=== PATIENT | male | born 1945 | race Caucasian/White ===

== ENCOUNTER → 2017-04-08 | Day surgery (SDC) | payer MEDICARE, OTHER ==
[~2017-04-08] MED LIST: IV RINGERS SOLUTION,LACTATED 1,000 ML IV ONE; PROPOFOL 20 ML IV ONE
--- NOTE | 2017-04-12 10:33 | PATHOLOGY ---
PATHOLOGY REPORT * * * * * * * * FINAL DIAGNOSIS: A. Colon, ascending, biopsy: - Hyperplastic polyp. B. Colon, descending, biopsy: - Adenomatous colonic mucosa, two fragments. - Hyperplastic colonic mucosa, approximately three fragments. (SKM:pit; 04/12/2017) REPORT ELECTRONICALLY SIGNED BY: Rashad Kelley M.D. DATE/TIME: 04/12/2017 10:32 * * * * * * * * GROSS PATHOLOGY: A. Received in formalin labeled "Curt Canales ascending colon BX," is a segment of pérez soft tissue measuring 0.4 cm in maximum dimension. The specimen is submitted entirely in cassette A1. B. Received in formalin labeled "Curt jacobson descending colon polyp," are multiple segments of pérez soft tissue measuring 2.4 x 0.7 by 0.3 cm in aggregate dimensions and ranging from 0.1 to 0.3 cm in maximum dimension. The specimen is submitted entirely in cassette B1. (TSD; 04/09/2017) INITIAL CPT CODE(S): A; 69011 B; 87907 Professional services performed by [email or web address] [place] [address] Technical services performed by [email or web address] at [address] [place] [address] [address], [place] [address]. SPECIMEN(S) RECEIVED: A.Ascending colon biopsy B.Descending colon polyp CLINICAL HISTORY: Colon polyps PATIENT: CURT CANALES /AGE: 10 1945 (Age: 71) PATIENT #: [id number] ALT CASE #: SPECIMEN COLLECTION DATE: 04/08/2017 SPECIMEN RECEIVED DATE: 04/09/2017 [facility] - [address] [place] [address] - PHONE: [phone] * * * END OF REPORT * * *
== END | disposition home or self-care (01) ==
LOC: SURG 11:31
PROVIDERS: ATTEND Internal Medicine Gastroenterology
DX: Z09 Encounter for follow-up examination after completed treatment for conditions other than malignant neoplasm (principal); Z87.19 Personal history of other diseases of the digestive system; D12.4 Benign neoplasm of descending colon; D12.2 Benign neoplasm of ascending colon; K57.30 Diverticulosis of large intestine without perforation or abscess without bleeding; I10 Essential (primary) hypertension; E78.00 Pure hypercholesterolemia, unspecified; M19.91 Primary osteoarthritis, unspecified site; Z88.6 Allergy status to analgesic agent; Z88.2 Allergy status to sulfonamides
CPT/HCPCS: 45380; 45385; 88305; J2704; J7120

== ENCOUNTER → 2017-10-18 | Outpatient (CLI) | payer MEDICARE, OTHER ==
--- NOTE | 2017-10-18 11:15 | RAD ---
Renal ultrasound 10/18/2017 Indication: Chronic renal failure, stage III Discussion: Ultrasound evaluation of the kidneys was performed. No comparison studies are available for review. Static images were submitted to PACS. Right kidney measures 12.8 cm in length. Left kidney measures 12.1 cm in length. Kidneys are grossly unremarkable in morphology. No focal renal lesions are identified. No nephrolithiasis or evidence of hydronephrosis is seen. Visualized bladder is unremarkable. Impression: Unremarkable sonographic appearance of the bilateral kidneys
== END | disposition home or self-care (01) ==
LOC: US 10:38
PROVIDERS: ATTEND Internal Medicine Nephrology
DX: I12.9 Hypertensive chronic kidney disease with stage 1 through stage 4 chronic kidney disease, or unspecified chronic kidney disease (principal); N18.3 Chronic kidney disease, stage 3 (moderate); E78.00 Pure hypercholesterolemia, unspecified
CPT/HCPCS: 76770

== ENCOUNTER 2019-02-26 21:57 | Inpatient (IN) | payer MEDICARE, OTHER ==
[~2019-02-26] VITALS: Ht 180.3 cm; Wt 86.2 kg
--- NOTE | 2019-02-26 22:52 | EKG ---
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
--- NOTE | 2019-02-26 22:54 | ED.ADGEN ---
Past History Past Medical History: Arthritis, COPD, High Cholesterol, Hypertension, Renal Disease Past Surgical History: No Surgical History Alcohol Use: Occasionally Drug Use: None, Marijuana Adult General Chief Complaint Chief Complaint "..I ve been having some chest pian..".. .or not really chest pain but tightness... ... I ve had this off and on... usually after I eat... But it seemed to get worse when we were on vacation and do have a history of COPD and hypertension and lipids but I am still having problems after of gotten back home..." HPI HPI Patient is a 73 year old male who presents with hx of interment chest discomfort which he describes as tightness . Patient's discomfort most often comes after eating. but does sometimes occur with activity. Patient does have a history of COPD, stage III kidney disease, hypertension,. And obesity. Patient recently had travel to [place] and drove back to [place] on Wednesday. Patient has had 2 previous stress test last one approximately 4 years ago. Patient normally follows with Dr. Artis Review of Systems Review of Systems Constitutional: Denies fever or chills [] Eyes: Denies change in visual acuity, redness, or eye pain [] HENT: Denies nasal congestion or sore throat [] Respiratory: Denies cough or shortness of breath []complaints of chest tightness Cardiovascular: No additional information not addressed in HPI [] GI: History of epigastric abdominal pain, nausea. Denies vomiting, bloody stools or diarrhea [] : Denies dysuria or hematuria [] Musculoskeletal: Denies back pain or joint pain [] Integument: Denies rash or skin lesions [] Neurologic: Denies headache, focal weakness or sensory changes [] Endocrine: Denies polyuria or polydipsia [] All other systems were reviewed and found to be within normal limits, except as documented in this note. Family History Family History Family history of coronary artery disease Current Medications Current Medications Current Medications Medications (Trade) Dose Ordered Sig/Wanda Start Time Stop Time Status Last Admin Dose Admin Aspirin (Children'S Aspirin) 324 mg 1X ONCE 02/26/19 23:15 02/26/19 23:16 DC 02/26/19 23:17 324 MG Famotidine (Pepcid Vial) 20 mg 1X ONCE 02/26/19 23:15 02/26/19 23:16 DC 02/26/19 23:17 20 MG Fentanyl Citrate (Fentanyl 2ml Vial) 75 mcg 1X ONCE 02/27/19 01:30 02/27/19 01:31 DC Info (Do NOT chart on this entry -- for MONITORING) 1 each PRN DAILY PRN 02/27/19 00:45 03/01/19 00:44 Iohexol (Omnipaque 240 Mg/ml) 30 ml 1X ONCE 02/27/19 01:00 02/27/19 01:01 DC 02/27/19 01:45 30 ML Iohexol (Omnipaque 350 Mg/ml) 100 ml 1X ONCE 02/27/19 01:00 02/27/19 01:01 DC 02/27/19 01:45 100 ML Lactated Ringer's 1,000 ml @ 1,000 mls/hr 1X ONCE 02/27/19 01:00 02/27/19 01:59 DC 02/27/19 00:54 1,000 MLS/HR Ondansetron HCl (Zofran) 8 mg 1X ONCE 02/26/19 23:15 02/26/19 23:16 DC 02/26/19 23:17 8 MG Allergies Allergies Allergies Coded Allergies Type Severity Reaction Last Updated Verified Sulfa (Sulfonamide Antibiotics) Allergy Severe Swelling 02/26/19 Yes morphine Allergy Severe Hives 02/26/19 Yes Physical Exam Physical Exam Constitutional: Moderate acute distress, non-toxic appearance. [] HENT: Normocephalic, atraumatic, bilateral external ears normal, oropharynx moist, no oral exudates, nose normal. [] Eyes: PERRLA, EOMI, conjunctiva normal, no discharge. [] Neck: Normal range of motion, no tenderness, supple, no stridor. [] Cardiovascular: Tachycardic Heart rate regular rhythm, no murmur []PMI to the left Lungs & Thorax: Bilateral breath sounds equal at apex with scattered wheezes throughout on auscultation [] Abdomen: Bowel sounds normal, soft, no tenderness, no masses, no pulsatile masses. [] Obese. Declined rectal exam at this time. Denies tarry stools Skin: Warm, dry, no erythema, no rash. [] Back: No tenderness, no CVA tenderness. [] Extremities: No tenderness, no cyanosis, no clubbing, ROM intact, ankle edema. [] Neurologic: Alert and oriented X 3, normal motor function, normal sensory function, no focal deficits noted. [] Psychologic: Affect anxious, judgement normal, mood normal. [] Current Patient Data Vital Signs Vital Signs Date Time Temp Pulse Resp B/P (MAP) Pulse Ox O2 Delivery O2 Flow Rate FiO2 02/27/19 01:22 79 18 167/97 (120) 97 Room Air 02/26/19 21:57 97.0 Lab Results Laboratory Tests Test 02/26/19 22:30 02/26/19 23:40 White Blood Count 5.3 x10^3/uL (4.0-11.0) Red Blood Count 4.70 x10^6/uL (4.30-5.70) Hemoglobin 14.2 g/dL (13.0-17.5) Hematocrit 41.5 % (39.0-53.0) Mean Corpuscular Volume 88 fL (79-100) Mean Corpuscular Hemoglobin 30 pg (25-35) Mean Corpuscular Hemoglobin Concent 34 g/dL (31-37) Red Cell Distribution Width 14.0 % (11.5-14.5) Platelet Count 249 x10^3/uL (140-400) Neutrophils (%) (Auto) 53 % (31-73) Lymphocytes (%) (Auto) 29 % (24-48) Monocytes (%) (Auto) 10 % (0-9) H Eosinophils (%) (Auto) 7 % (0-3) H Basophils (%) (Auto) 1 % (0-3) Neutrophils # (Auto) 2.8 x10^3uL (1.8-7.7) Lymphocytes # (Auto) 1.5 x10^3/uL (1.0-4.8) Monocytes # (Auto) 0.5 x10^3/uL (0.0-1.1) Eosinophils # (Auto) 0.4 x10^3/uL (0.0-0.7) Basophils # (Auto) 0.1 x10^3/uL (0.0-0.2) Prothrombin Time 10.0 SEC (9.4-11.4) Prothrombin Time INR 1.0 (0.9-1.1) Activated Partial Thromboplast Time 23 SEC (23-33) D-Dimer (Flor) 0.71 mg/L (0.00-0.50) H Sodium Level 138 mmol/L (136-145) Potassium Level 3.4 mmol/L (3.5-5.1) L Chloride Level 104 mmol/L (98-107) Carbon Dioxide Level 22 mmol/L (21-32) Anion Gap 12 (6-14) Blood Urea Nitrogen 20 mg/dL (8-26) Creatinine 1.6 mg/dL (0.7-1.3) H Estimated GFR (Cockcroft-Gault) 42.8 Glucose Level 124 mg/dL (70-99) H Calcium Level 9.0 mg/dL (8.5-10.1) Magnesium Level 2.0 mg/dL (1.8-2.4) Total Bilirubin 0.3 mg/dL (0.2-1.0) Direct Bilirubin 0.1 mg/dL (0.0-0.2) Aspartate Amino Transferase (AST) 27 U/L (15-37) Alanine Aminotransferase (ALT) 41 U/L (16-63) Alkaline Phosphatase 57 U/L (46-116) Creatine Kinase 112 U/L (39-308) Troponin I Quantitative < 0.017 ng/mL (0-0.055) Total Protein 7.8 g/dL (6.4-8.2) Albumin 4.1 g/dL (3.4-5.0) Lipase 437 U/L (73-393) H Urine Collection Type Unknown Urine Color Yellow Urine Clarity Clear Urine pH 6.0 Urine Specific [place] 1.015 Urine Protein Neg (NEG-TRACE) Urine Glucose (UA) Neg mg/dL (NEG) Urine Ketones (Stick) Neg mg/dL (NEG) Urine Blood Neg (NEG) Urine Nitrite Neg (NEG) Urine Bilirubin Neg (NEG) Urine Urobilinogen Dipstick 0.2 mg/dL (0.2 mg/dL) Urine Leukocyte Esterase Neg (NEG) Urine RBC 0 /HPF (0-2) Urine WBC Occ /HPF (0-4) Urine Squamous Epithelial Cells Occ /LPF Urine Bacteria 0 /HPF (0-FEW) EKG EKG My interpretation EKG shows a sinus rhythm at 94 bpm. No findings acute STEMI of contralateral changes.[] Time 2215 hrs. Gunnar EKG at 0408 hrs. shows a sinus rhythm with heart rate of 79. There is some baseline artifact. But no findings of acute STEMI with contralateral changes. No marked interval changes Radiology/Procedures Radiology/Procedures [address] [address] IMAGING REPORT Signed PATIENT: CURT MCGOWAN ACCOUNT: [id number] : 1945 LOCATION: ER AGE: 73 SEX: M EXAM STATUS: REG ER ORD. PHYSICIAN: ILDA EVANS MD REASON: Chest and abdomen pain, nausea, vomiting, elev d-dimer PROCEDURE: CT ANGIO CHEST W ABD PEL W/ EXAM: CT ANGIOGRAPHY OF THE CHEST, ABDOMEN AND PELVIS WITH AND WITHOUT CONTRAST. HISTORY: Chest and abdominal pain. Nausea/vomiting. Elevated d-dimer. Lung nodule. TECHNIQUE: Computed tomographic angiography of the chest, abdomen and pelvis was performed before and after the intravenous administration of iodinated contrast. 3-D maximum intensity projections were also performed. COMPARISON: None. FINDINGS: Bone windows reveal no suspicious lesions. No pulmonary emboli are identified. There is no aortic dissection or aneurysm. There are no pathologically enlarged mediastinal or axillary lymph nodes. Calcified mediastinal lymph nodes are likely secondary to old granulomatous disease. There is no pleural or pericardial effusion. The heart is not enlarged. There is a small to moderate hiatal hernia. Lung windows reveal mild dependent atelectasis. There is no suspicious correlate for the finding of plain radiographs which was likely a superimposed density. There is mild pleural-parenchymal scarring simulating a 4 mm nodule in the right apex. There are calcified granulomas in the liver and spleen. Hypoattenuation of the hepatic parenchyma is consistent with mild to moderate diffuse hepatic steatosis. The pancreas, adrenal glands, and gallbladder are unremarkable. There are extrarenal pelves bilaterally. There is no hydronephrosis. There are tiny cysts in the left kidney. There are no pathologically enlarged lymph nodes. Sigmoid diverticulosis is moderate. There is no acute inflammation. The appendix is not inflamed. There is no small bowel obstruction. IMPRESSION: 1. No pulmonary embolism. 2. Small to moderate hiatal hernia. 3. Diffuse hepatic steatosis. 4. No suspicious correlate for the nodule suggested by plain radiographs. This was likely simulated. *One or more of the following individualized dose reduction techniques were utilized for this examination: 1. Automated exposure control. 2. Adjustment of the mA and/or kV according to patient size. 3. Use of iterative reconstruction technique. Electronically signed by: Diana Silva MD (02/27/2019 3:46 AM) [facility] [place] [] IMAGING REPORT Signed PATIENT: CURT MCGOWAN ACCOUNT: [id number] : 1945 LOCATION: ER AGE: 73 SEX: M EXAM STATUS: PRE ER ORD. PHYSICIAN: ILDA EVANS MD REASON: Chest pain PROCEDURE: CHEST PA & LATERAL EXAM: CHEST 2 VIEWS. HISTORY: Chest pain. COMPARISON: None. FINDINGS: Frontal and lateral views of the chest are obtained. There are no confluent infiltrates. A 1.5 cm nodule projects posteriorly on the lateral projection and is indeterminate. Calcified mediastinal lymph nodes are likely secondary to old granulomatous disease. There is no pneumothorax or pleural effusion. The heart is not enlarged. IMPRESSION: 1. Indeterminate 1.5 cm nodule posteriorly on the lateral projection. Comparison with older radiographs is recommended to exclude a parenchymal nodule. Electronically signed by: Diana Silva MD (02/27/2019 12:14 AM) [facility] [place] DICTATED AND SIGNED BY: DASHA SILVA MD DATE: 02/27/19 0014 CC: LJ ARTIS MD; ILDA EVANS MD ~ Course & Med Decision Making Course & Med Decision Making Pertinent Labs and Imaging studies reviewed. (See chart for details) Patient admitted to Dr. Artis with a cardiology consult [] Final Impression Final Impression 1. Chest Pain[] 2. Abdomen Pain 3. Elevated Lipase 437 4. Elevated Creat. 1.6 5. Hypokalemia 3.4 6. Elevated D-dimer 0.71 7. DM Glucose 124 8. Pulmonary Nodule 1.5 cm Dragon Disclaimer Dragon Disclaimer This electronic medical record was generated, in whole or in part, using a voice recognition dictation system. Dragon Disclaimer This chart was dictated in whole or in part using Voice Recognition software in a busy, high-work load, and often noisy Emergency Department environment. It may contain unintended and wholly unrecognized errors or omissions. ILDA EVANS MD Feb 26, 2019 22:54
[2019-02-26 23:05] LABS: BASO # 0.1 x10^3/uL (0.0-0.2); BASO % 1 % (0-3); EOS # 0.4 x10^3/uL (0.0-0.7); EOS % 7 % (0-3); HEMATOCRIT 41.5 % (39.0-53.0); HEMOGLOBIN 14.2 g/dL (13.0-17.5); LYMPH # 1.5 x10^3/uL (1.0-4.8); LYMPH % 29 % (24-48); MEAN CORPUSCULAR HEMOGLOBIN 30 pg (25-35); MEAN CORPUSCULAR HGB CONC 34 g/dL (31-37); MEAN CORPUSCULAR VOLUME 88 fL (79-100); MONO # 0.5 x10^3/uL (0.0-1.1); MONO % 10 % (0-9); NEUT # 2.8 x10^3uL (1.8-7.7); NEUT % 53 % (31-73); PLATELET COUNT 249 x10^3/uL (140-400); WHITE BLOOD COUNT 5.3 x10^3/uL (4.0-11.0)
[2019-02-26 23:11] LABS: ALBUMIN 4.1 g/dL (3.4-5.0); CREATININE 1.6 mg/dL (0.7-1.3); DIRECT BILIRUBIN 0.1 mg/dL (0.0-0.2); GFR 42.8; POTASSIUM 3.4 mmol/L (3.5-5.1); TOTAL BILIRUBIN 0.3 mg/dL (0.2-1.0); TOTAL PROTEIN 7.8 g/dL (6.4-8.2)
[2019-02-26] MEDS ORDERED: IV RINGERS SOLUTION,LACTATED 1,000 ML IV SCH (23:15)
[2019-02-26] MEDS ORDERED: FAMOTIDINE 20 MG/2 ML VIAL IVP ONE (23:15)
[2019-02-26] MEDS ORDERED: ASPIRIN 81 MG TAB.CHEW PO ONE (23:15)
[2019-02-26] MEDS ORDERED: ONDANSETRON PF 4 MG/2 ML VIAL. IV ONE (23:15)
--- NOTE | 2019-02-27 00:17 | RAD ---
EXAM: CHEST 2 VIEWS. HISTORY: Chest pain. COMPARISON: None. FINDINGS: Frontal and lateral views of the chest are obtained. There are no confluent infiltrates. A 1.5 cm nodule projects posteriorly on the lateral projection and is indeterminate. Calcified mediastinal lymph nodes are likely secondary to old granulomatous disease. There is no pneumothorax or pleural effusion. The heart is not enlarged. IMPRESSION: 1. Indeterminate 1.5 cm nodule posteriorly on the lateral projection. Comparison with older radiographs is recommended to exclude a parenchymal nodule. Electronically signed by: Diana Silva MD (02/27/2019 12:14 AM) [facility]
[2019-02-27] MEDS ORDERED: IV RINGERS SOLUTION,LACTATED 1,000 ML IV ONE ×2 (00:30→01:00)
[2019-02-27] MEDS ORDERED: CONTRAST GIVEN MC PRN (00:45)
[2019-02-27 00:47] LABS: BILIRUBIN,URINE NEG (NEG); CLARITY,URINE CLEAR; COLOR,URINE YELLOW; GLUCOSE,URINE NEG (NEG)
[2019-02-27 00:48] LABS: BACTERIA,URINE 0 /HPF (0-FEW); NITRITE,URINE NEG (NEG); RBC,URINE 0 /HPF (0-2); SQUAMOUS EPITHELIAL CELL,UR OCC /LPF; UROBILINOGEN,URINE 0.2 mg/dL (0.2 mg/dL); WBC,URINE OCC /HPF (0-4)
[2019-02-27] MEDS ORDERED: IOHEXOL 350 MG/ML 100 ML VIAL. IV ONE (01:00)
[2019-02-27] MEDS ORDERED: IOHEXOL 240 MG/ML 50ML VIAL. PO ONE (01:00)
[2019-02-27] MEDS ORDERED: ENOXAPARIN ** NOTE DOSE ** SYRINGE SQ ONE (02:15)
--- NOTE | 2019-02-27 03:49 | RAD ---
EXAM: CT ANGIOGRAPHY OF THE CHEST, ABDOMEN AND PELVIS WITH AND WITHOUT CONTRAST. HISTORY: Chest and abdominal pain. Nausea/vomiting. Elevated d-dimer. Lung nodule. TECHNIQUE: Computed tomographic angiography of the chest, abdomen and pelvis was performed before and after the intravenous administration of iodinated contrast. 3-D maximum intensity projections were also performed. COMPARISON: None. FINDINGS: Bone windows reveal no suspicious lesions. No pulmonary emboli are identified. There is no aortic dissection or aneurysm. There are no pathologically enlarged mediastinal or axillary lymph nodes. Calcified mediastinal lymph nodes are likely secondary to old granulomatous disease. There is no pleural or pericardial effusion. The heart is not enlarged. There is a small to moderate hiatal hernia. Lung windows reveal mild dependent atelectasis. There is no suspicious correlate for the finding of plain radiographs which was likely a superimposed density. There is mild pleural-parenchymal scarring simulating a 4 mm nodule in the right apex. There are calcified granulomas in the liver and spleen. Hypoattenuation of the hepatic parenchyma is consistent with mild to moderate diffuse hepatic steatosis. The pancreas, adrenal glands, and gallbladder are unremarkable. There are extrarenal pelves bilaterally. There is no hydronephrosis. There are tiny cysts in the left kidney. There are no pathologically enlarged lymph nodes. Sigmoid diverticulosis is moderate. There is no acute inflammation. The appendix is not inflamed. There is no small bowel obstruction. IMPRESSION: 1. No pulmonary embolism. 2. Small to moderate hiatal hernia. 3. Diffuse hepatic steatosis. 4. No suspicious correlate for the nodule suggested by plain radiographs. This was likely simulated. *One or more of the following individualized dose reduction techniques were utilized for this examination: 1. Automated exposure control. 2. Adjustment of the mA and/or kV according to patient size. 3. Use of iterative reconstruction technique. Electronically signed by: Diana Silva MD (02/27/2019 3:46 AM) [facility]
[2019-02-27] MEDS ORDERED: ACETAMINOPHEN 325 MG TABLET PO PRN (04:00)
[2019-02-27] MEDS ORDERED: ONDANSETRON PF 4 MG/2 ML VIAL. IV PRN (04:00)
--- NOTE | 2019-02-27 04:13 | EKG ---
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
[2019-02-27] MEDS ORDERED: ANTI-COAG MONITOR BY PHARMACY. MC PRN (04:30)
[2019-02-27] MEDS ORDERED: IPRATRPIUM/ALBUTEROL 0.5/2.5MG 3 ML NEBU. ONE (04:52)
[2019-02-27] MEDS: IPRATRPIUM/ALBUTEROL 0.5/2.5MG 3 ML NEBU. NEB SCH ×2 (04:59→11:46)
[2019-02-27 06:22] VITALS: BP 134/73
[2019-02-27] MEDS ORDERED: FENO135C PO (07:10)
[2019-02-27] MEDS ORDERED: ASPI81TA59 PO (07:10)
[2019-02-27] MEDS ORDERED: CHOL10003 PO (07:10)
[2019-02-27] MEDS ORDERED: AMLO10TA4 PO (07:10)
[2019-02-27] MEDS ORDERED: BISO10TA PO (07:10)
[2019-02-27] MEDS ORDERED: ESOM20CA PO (07:10)
[2019-02-27] MEDS ORDERED: EZET10TA20 PO (07:10)
[2019-02-27] MEDS: ENOXAPARIN ** NOTE DOSE ** SYRINGE SQ SCH ×2 (08:24→21:00)
[2019-02-27] MEDS: NITROGLYCERIN OINT 1 GM PACKET. TP SCH ×3 (08:25→21:00)
[2019-02-27] MEDS: ASPIRIN 81 MG TAB.CHEW PO SCH (08:47)
[2019-02-27] MEDS ORDERED: ELECTROLYTE (NON-ICU) PROTOCOL MC PRN (09:15)
--- NOTE | 2019-02-27 09:30 | PDOC2 ---
CARLA TRIMBLE CHEMISTRY TUTOR 02/27/19 0930: CARDIAC CONSULT DATE OF CONSULT Date Of Consult DATE: 02/27/19 TIME: 09:26 REASON FOR CONSULT Reason for Consult Chest pain Hypertension Elevated lipids REFERRING PHYSICIAN Referring Physician Dr. Ledesma SOURCE Source: Chart review, Patient HPI History of Present Illness This is a 73 yo male who presented secondary to chest tightness. Patient has been in [place] visiting for the past week. Has been hot/humid. Began having intermittent tightness in his central chest while on vacation. No associated dizziness, diaphoresis, or palpitations. Did have vomiting following drinking too much on Wednesday the . Does not routinely drink. Got back home Wednesday. Continued to have intermittent tightness so brought him to the ED for further evaluation and treatment. Has a history of COPD. Was previously on Spiriva, but has not used regularly in 3 years. Reports that he had Spiriva at home, which he used and improved the tightness. Also improved with breathing treatment. Denies any further tightness since admission. Report normal stress t est last year conducted in [place]. PAST MEDICAL HISTORY Cardiovascular: HTN Pulmonary: COPD, Other (BISMARK- not compliant with CPAP) Renal/: Chronic renal insuff PAST SURGICAL HISTORY Past Surgical History: No pertinent history FAMILY HISTORY Family History: Coronary Artery Disease (mother and father ) SOCIAL HISTORY Smoke: No ALCOHOL: occassional Drugs: None Lives: with Family CURRENT MEDICATIONS Current Medications Current Medications Aspirin (Children'S Aspirin) 324 mg 1X ONCE PO Last administered on 02/26/19at 23:17; Start 02/26/19 at 23:15; Stop 02/26/19 at 23:16; Status DC Lactated Ringer's 1,000 ml @ 100 mls/hr Q10H IV Last administered on 02/26/19 23:17; Start 02/26/19 at 23:15; Stop 02/27/19 at 09:14; Status DC Ondansetron HCl (Zofran) 8 mg 1X ONCE IV Last administered on 02/26/19at 23:17; Start 02/26/19 at 23:15; Stop 02/26/19 at 23:16; Status DC Famotidine (Pepcid Vial) 20 mg 1X ONCE IVP Last administered on 02/26/19at 23:17; Start 02/26/19 at 23:15; Stop 02/26/19 at 23:16; Status DC Lactated Ringer's 1,000 ml @ 1,000 mls/hr 1X ONCE IV Last administered on 02/27/19 00:54; Start 02/27/19 at 00:30; Stop 02/27/19 at 01:29; Status DC Iohexol (Omnipaque 240 Mg/ml) 30 ml 1X ONCE PO Last administered on 02/27/19 01:45; Start 02/27/19 at 01:00; Stop 02/27/19 at 01:01; Status DC Iohexol (Omnipaque 350 Mg/ml) 100 ml 1X ONCE IV Last administered on 02/27/19 01:45; Start 02/27/19 at 01:00; Stop 02/27/19 at 01:01; Status DC Info (Do NOT chart on this entry -- for MONITORING) 1 each PRN DAILY PRN MC SEE COMMENTS; Start 02/27/19 at 00:45; Stop 03/01/19 at 00:44 Lactated Ringer's 1,000 ml @ 1,000 mls/hr 1X ONCE IV Last administered on 02/27/19 00:54; Start 02/27/19 at 01:00; Stop 02/27/19 at 01:59; Status DC Fentanyl Citrate (Fentanyl 2ml Vial) 75 mcg 1X ONCE IV ; Start 02/27/19 at 01:30; Stop 02/27/19 at 01:31; Status DC Enoxaparin Sodium (Lovenox 80mg Syringe) 90 mg 1X ONCE SQ Last administered on 02/27/19at 04:40; Start 02/27/19 at 02:15; Stop 02/27/19 at 02:16; Status DC Ondansetron HCl (Zofran) 4 mg PRN Q4HRS PRN IV NAUSEA/VOMITING; Start 02/27/19 at 04:00; Stop 02/28/19 at 03:59 Acetaminophen (Tylenol) 650 mg PRN Q4HRS PRN PO FEVER; Start 02/27/19 at 04:00; Stop 02/28/19 at 03:59 Albuterol/ Ipratropium (Duoneb) 3 ml RTQID NEB Last administered on 02/27/19at 04:59; Start 02/27/19 at 08:00; Stop 02/28/19 at 07:59 Aspirin (Children'S Aspirin) 81 mg DAILY PO Last administered on 02/27/19at 08:47; Start 02/27/19 at 09:00 Enoxaparin Sodium (Lovenox 100mg Syringe) 90 mg BID SQ ; Start 02/27/19 at 09:00 Nitroglycerin (Nitro-Bid Oint) 0.5 inch TID TP ; Start 02/27/19 at 09:00 Info (Anti-Coagulation Monitoring By Pharmacy) 1 each PRN DAILY PRN MC SEE COMMENTS; Start 02/27/19 at 04:30; Status Cancel Albuterol/ Ipratropium (Duoneb) 3 ml STK-MED ONCE .ROUTE ; Start 02/27/19 at 04:52; Stop 02/27/19 at 04:52; Status DC Albuterol/ Ipratropium (Duoneb) 3 ml RTQID NEB ; Start 02/27/19 at 12:00; Status Cancel Info (Non-Icu Electrolyte Protocol) 1 ea CONT PRN PRN MC PER PROTOCOL; Start 02/27/19 at 09:15 Sodium Chloride 1,000 ml @ 75 mls/hr [id number] IV ; Start 02/27/19 at 09:15 Active Scripts Active Reported Nexium Capsule (Esomeprazole Magnesium) 20 Mg Capsule.dr 1 Cap PO DAILY Vitamin D3 (Cholecalciferol (Vitamin D3)) 1,000 Unit Tablet 2 Tab PO DAILY Bisoprolol Fumarate 10 Mg Tablet 10 Mg PO DAILY Children's Aspirin (Aspirin) 81 Mg Tab.chew 81 Mg PO DAILY Zetia (Ezetimibe) 10 Mg Tablet 1 Tab PO DAILY Trilipix (Fenofibric Acid (Choline)) 135 Mg Capsule.dr 1 Cap PO DAILY Norvasc (Amlodipine Besylate) 10 Mg Tablet 1 Tab PO DAILY ALLERGIES Allergies: Coded Allergies: Sulfa (Sulfonamide Antibiotics) (Verified Allergy, Severe, Swelling, 02/26/19) morphine (Verified Allergy, Severe, Hives, 02/26/19) ROS Review of Systems 14 point ROS conducted with pertinent positives noted above in HPI. PHYSICAL EXAM General: Alert, Oriented X3, Cooperative, No acute distress HEENT: Atraumatic, Mucous membr. moist/pink Lungs: Clear to auscultation, Normal air movement Heart: Regular rate, Normal S1, Normal S2, No murmurs Abdomen: Soft, No tenderness Extremities: No cyanosis, No edema Skin: No breakdown Neuro: Normal speech, Sensation intact Psych/Mental Status: Mental status NL, Mood NL MUSCULOSKELETAL: Osteoarthritic changes both hands VITALS Vital Signs Vital Signs Date Time Temp Pulse Resp B/P (MAP) Pulse Ox O2 Delivery O2 Flow Rate FiO2 02/27/19 06:22 97.6 97 16 134/73 (93) 97 Room Air LABS LABS Laboratory Tests Test 02/26/19 22:30 02/26/19 23:40 02/27/19 03:40 White Blood Count 5.3 x10^3/uL (4.0-11.0) Red Blood Count 4.70 x10^6/uL (4.30-5.70) Hemoglobin 14.2 g/dL (13.0-17.5) Hematocrit 41.5 % (39.0-53.0) Mean Corpuscular Volume 88 fL (79-100) Mean Corpuscular Hemoglobin 30 pg (25-35) Mean Corpuscular Hemoglobin Concent 34 g/dL (31-37) Red Cell Distribution Width 14.0 % (11.5-14.5) Platelet Count 249 x10^3/uL (140-400) Neutrophils (%) (Auto) 53 % (31-73) Lymphocytes (%) (Auto) 29 % (24-48) Monocytes (%) (Auto) 10 % (0-9) Eosinophils (%) (Auto) 7 % (0-3) Basophils (%) (Auto) 1 % (0-3) Neutrophils # (Auto) 2.8 x10^3uL (1.8-7.7) Lymphocytes # (Auto) 1.5 x10^3/uL (1.0-4.8) Monocytes # (Auto) 0.5 x10^3/uL (0.0-1.1) Eosinophils # (Auto) 0.4 x10^3/uL (0.0-0.7) Basophils # (Auto) 0.1 x10^3/uL (0.0-0.2) Prothrombin Time 10.0 SEC (9.4-11.4) Prothromb Time International Ratio 1.0 (0.9-1.1) Activated Partial Thromboplast Time 23 SEC (23-33) D-Dimer (Flor) 0.71 mg/L (0.00-0.50) Sodium Level 138 mmol/L (136-145) Potassium Level 3.4 mmol/L (3.5-5.1) Chloride Level 104 mmol/L (98-107) Carbon Dioxide Level 22 mmol/L (21-32) Anion Gap 12 (6-14) Blood Urea Nitrogen 20 mg/dL (8-26) Creatinine 1.6 mg/dL (0.7-1.3) Estimated GFR (Cockcroft-Gault) 42.8 Glucose Level 124 mg/dL (70-99) Calcium Level 9.0 mg/dL (8.5-10.1) Magnesium Level 2.0 mg/dL (1.8-2.4) Total Bilirubin 0.3 mg/dL (0.2-1.0) Direct Bilirubin 0.1 mg/dL (0.0-0.2) Aspartate Amino Transf (AST/SGOT) 27 U/L (15-37) Alanine Aminotransferase (ALT/SGPT) 41 U/L (16-63) Alkaline Phosphatase 57 U/L (46-116) Creatine Kinase 112 U/L (39-308) Troponin I Quantitative < 0.017 ng/mL (0-0.055) < 0.017 ng/mL (0-0.055) Total Protein 7.8 g/dL (6.4-8.2) Albumin 4.1 g/dL (3.4-5.0) Lipase 437 U/L (73-393) Urine Collection Type Unknown Urine Color Yellow Urine Clarity Clear Urine pH 6.0 Urine Specific [place] 1.015 Urine Protein Neg (NEG-TRACE) Urine Glucose (UA) Neg mg/dL (NEG) Urine Ketones (Stick) Neg mg/dL (NEG) Urine Blood Neg (NEG) Urine Nitrite Neg (NEG) Urine Bilirubin Neg (NEG) Urine Urobilinogen Dipstick 0.2 mg/dL (0.2 mg/dL) Urine Leukocyte Esterase Neg (NEG) Urine RBC 0 /HPF (0-2) Urine WBC Occ /HPF (0-4) Urine Squamous Epithelial Cells Occ /LPF Urine Bacteria 0 /HPF (0-FEW) ASSESSMENT/PLAN Assessment/Plan 1. Chest pain, atypical. AMI ruled out. Stress test last year reportedly normal 2. AE COPD; improved 3. Hypertension; mildly elevated upon arrival. No controlled 4. Hyperlipidemia; statin 5. AUBRIE; stable 6. Hypokalemia 7. Elevated lipase; as per PCP Recommendations ASA, statin Replace K lipid panel Echo to assess LV systolic function Further recommendations pending above BHARTI MORRISON MD 02/27/19 2014: CARDIAC CONSULT ASSESSMENT/PLAN Assessment/Plan Patient seen and examined. Agree with [facility]'s assessment and plan. Chest tightness appears to be secondary to vasospasm AL ruled out 2D echo showed normal LVF without WMA Recent MPI apparently normal Acute COPD exacerbation improved BP better controlled since admission No further cardiac workup is indicated at this time Thank you for your consultation CARLA TRIMBLE APRN Feb 27, 2019 09:30 BHARTI MORRISON MD Feb 27, 2019 20:14
[2019-02-27] MEDS: IV NORMAL SALINE 1,000ML 1,000 ML IV SCH ×2 (09:37→22:35)
[2019-02-27] MEDS: ATENOLOL 50 MG TABLET PO SCH (10:00)
[2019-02-27] MEDS ORDERED: ASPIRIN 81 MG TAB.CHEW PO SCH (10:00)
[2019-02-27] MEDS ORDERED: POTASSIUM CHLORIDE 20 MEQ TABLET.ER. PO ONE (10:00)
--- NOTE | 2019-02-27 10:49 | HP ---
ADMIT DATE: 02/27/2019 HISTORY OF PRESENT ILLNESS: A 73-year-old gentleman came in through the Emergency Room, apparently has been having some chest pain, tightness in his chest, off and on, usually after he ate. The patient has a history of COPD. He has been on vacation and eating [employer] burgers and all sorts of other greasy foods. The patient describes the chest discomfort as tightness, and he has been driving quite a bit from [place]. He did have a stress test 4 years ago, which was unremarkable. PAST MEDICAL HISTORY: Arthritis, COPD, hypertension, renal disease, kidney stones, fracture of the right wrist and back pain. ALLERGIES: SULFUR AND MORPHINE. MEDICATIONS: Include that of Zetia 10 mg a day, Norvasc 5 mg a day, aspirin 81, vitamin D3, bisoprolol 10 mg daily, Nexium 20 mg a day and choline/Trilipix for hypertriglyceridemia. FAMILY HISTORY: Positive for heart disease. SOCIAL HISTORY: The patient does drink alcohol fairly heavily at times. Otherwise, unremarkable. REVIEW OF SYSTEMS: Denies headaches, visual change, blurred vision or double vision. Denies any neurological dysfunction, problem with bowels or bladder at this time, although does have some problems with greasy foods. PHYSICAL EXAMINATION: GENERAL: This is a very pleasant gentleman in at this time no apparent distress. VITAL SIGNS: Blood pressure 134/70, respiratory rate 16, pulse 97, afebrile. HEENT: The patient's head was atraumatic, normocephalic. Eyes: PERRLA without jaundice. Mouth and throat were normal. NECK: Supple. No JVD or thyromegaly. LUNGS: Diminished throughout, but clear. CARDIOVASCULAR: Regular sinus rhythm. ABDOMEN: Soft, nontender, no rebound or guarding. Positive bowel sounds. No hepatosplenomegaly was noted. EXTREMITIES: No clubbing, cyanosis or edema. NEUROLOGIC: The patient was alert and oriented x 3. The patient was admitted for further evaluation. LABORATORY DATA: His lipase was elevated at 437, creatinine elevated to 1.6, potassium low at 3.4. IMPRESSION: Chest pain, rule out atypical type heart attack, abdominal pain with elevated lipase, possible pancreatitis versus gallbladder problem, chronic kidney disease stage 3, hyperlipidemia and hypertriglyceridemia. The patient's x-rays were unremarkable. CTA was unremarkable for pulmonary emboli, even though positive D-dimer. We will get an abdominal sonogram and see what Cardiology has to offer this gentleman. LJ ARTIS MD DR: JOHNIE/cinthia JOB#: [id number] / [id number]
[2019-02-27 10:51] VITALS: BP 143/83
[2019-02-27] MEDS ORDERED: IPRATRPIUM/ALBUTEROL 0.5/2.5MG 3 ML NEBU. NEB SCH (12:00)
[2019-02-27 13:40] LABS: THYROID STIM HORMONE (TSH) 2.477 uIU/mL (0.358-3.740)
[2019-02-27 14:24] VITALS: BP 144/77
--- NOTE | 2019-02-27 14:53 | CARD ---
MR#: [id number] Date of Study: 02/27/2019 Ordering Physician: CARLA TRIMBLE, Referring Physician: CARLA TRIMBLE, Tech: Aneta Durant RDCS APPROVED REPORT EXAM: Two-dimensional and M-mode echocardiogram with Doppler and color Doppler. Other Information Quality : Good INDICATION Chest Pain 2D DIMENSIONS RVDd2.8 (2.9-3.5cm)Left Atrium(2D)3.8 (1.6-4.0cm) IVSd1.1 (0.7-1.1cm)Aortic Root(2D)3.1 (2.0-3.7cm) LVDd4.1 (3.9-5.9cm)LVOT Diameter2.1 (1.8-2.4cm) PWd1.1 (0.7-1.1cm)LVDs2.9 (2.5-4.0cm) FS (%) 30.0 %LVEF(%)60.0 (>50%) Aortic Valve AO Peak GR.12.0mmHgAO Mean GR.6mmHg SHITAL (VTI)3.00cm2 Tricuspid Valve TR P. [id number] TR Peak [id number] LEFT VENTRICLE The left ventricle is normal size. There is normal left ventricular wall thickness. The left ventricu lar systolic function is normal. The Ejection Fraction is 60-65%. There is normal LV segmental wall m otion. Transmitral Doppler flow pattern is Grade I-abnormal relaxation pattern. RIGHT VENTRICLE The right ventricle is normal size. The right ventricular systolic function is normal. ATRIA The left atrium size is normal. The right atrium size is normal. The interatrial septum is intact wit h no evidence for an atrial septal defect or patent foramen ovale as noted on 2-D or Doppler imaging. AORTIC VALVE The aortic valve is calcified but opens well. Doppler and Color Flow revealed no significant aortic r egurgitation. There is no significant aortic valvular stenosis. MITRAL VALVE The mitral valve is calcified but opens well. There is no evidence of mitral valve prolapse. There is no mitral valve stenosis. Doppler and Color Flow revealed no mitral valve regurgitation noted. TRICUSPID VALVE The tricuspid valve is normal in structure and function. Doppler and Color Flow revealed trace tricus pid regurgitation. There is mild pulmonary hypertension. The PA pressure was estimated at 38 mmHg. Th ere is no tricuspid valve stenosis. PULMONIC VALVE The pulmonic valve is not well visualized. Doppler and Color Flow revealed no pulmonic valvular regur gitation. There is no pulmonic valvular stenosis. GREAT VESSELS The aortic root is normal in size. The ascending aorta is not well seen. The IVC is normal in size an d collapses >50% with inspiration. PERICARDIAL EFFUSION There is no evidence of significant pericardial effusion. Critical Notification Critical Value: No <Conclusion> The left ventricular systolic function is normal. The Ejection Fraction is 60-65%. There is normal LV segmental wall motion. Transmitral Doppler flow pattern is Grade I-abnormal relaxation pattern. Trace tricuspid regurgitation. The PA pressure was estimated at 38 mmHg. There is no evidence of significant pericardial effusion. Signed by : Montana Galan, Electronically Approved : 02/27/2019 14:52:53
--- NOTE | 2019-02-27 16:40 | RAD ---
EXAM: Abdomen sonogram. HISTORY: Pain and elevated lipase. TECHNIQUE: Sonographic imaging of the abdomen was performed. COMPARISON: CT obtained on the same date. FINDINGS: There is hepatic steatosis. There is a small hepatic cyst measuring 1.8 cm. No suspicious hepatic lesion is seen. The spleen is normal in size and contains calcified granulomas. There is mild common bile duct dilatation for patient age, measuring 12 mm distally at the level of the pancreatic head. The gallbladder is unremarkable. The kidneys are unremarkable. The pancreas is unremarkable. The aorta is normal in caliber. The inferior vena cava is patent. IMPRESSION: 1. Downstream common bile duct dilatation. ERCP or MRCP may be useful if there is concern for an occult etiology. 2. Hepatic steatosis and small hepatic cyst. Electronically signed by: Beverley Conrad MD (02/27/2019 4:37 PM) [id number]
[2019-02-27] MEDS: EZETIMIBE 10 MG TABLET PO SCH (17:23)
[2019-02-27] MEDS: amLODIPine BESYLATE 10 MG TABLET PO SCH (17:24)
[2019-02-27] MEDS: CHOLECALCIFEROL (VITAMIN D3) 1,000 UNIT TABLET PO SCH (17:24)
[2019-02-27] MEDS: FENOFIBRATE NANOCRYSTALLIZED 145 MG TABLET PO SCH (17:24)
[2019-02-27] MEDS: PANTOPRAZOLE 40 MG TABLET. PO SCH (17:24)
[2019-02-27 19:59] VITALS: BP 144/78
[2019-02-27 22:35] VITALS: BP_SYST 127; BP_SYST 130; BP_DIAS 76; BP_DIAS 82
[2019-02-28 05:47] VITALS: BP 136/83
[2019-02-28 06:36] LABS: BASO # 0.1 x10^3/uL (0.0-0.2); BASO % 2 % (0-3); EOS # 0.3 x10^3/uL (0.0-0.7); EOS % 10 % (0-3); HEMATOCRIT 39.2 % (39.0-53.0); HEMOGLOBIN 13.3 g/dL (13.0-17.5); LYMPH % 29 % (24-48); MEAN CORPUSCULAR HEMOGLOBIN 30 pg (25-35); MEAN CORPUSCULAR HGB CONC 34 g/dL (31-37); MEAN CORPUSCULAR VOLUME 88 fL (79-100); MONO # 0.4 x10^3/uL (0.0-1.1); MONO % 10 % (0-9); NEUT # 1.8 x10^3uL (1.8-7.7); NEUT % 50 % (31-73); PLATELET COUNT 221 x10^3/uL (140-400); RED BLOOD COUNT 4.43 x10^6/uL (4.30-5.70); RED CELL DISTRIBUTION WIDTH 14.3 % (11.5-14.5); WHITE BLOOD COUNT 3.6 x10^3/uL (4.0-11.0)
[2019-02-28 06:45] LABS: CREATININE 1.4 mg/dL (0.7-1.3); POTASSIUM 4.1 mmol/L (3.5-5.1)
[2019-02-28] MEDS: NITROGLYCERIN OINT 1 GM PACKET. TP SCH (09:00)
[2019-02-28] MEDS: ENOXAPARIN ** NOTE DOSE ** SYRINGE SQ SCH (09:00)
[2019-02-28] MEDS: ATENOLOL 50 MG TABLET PO SCH (09:00)
[2019-02-28] MEDS: ASPIRIN 81 MG TAB.CHEW PO SCH (09:18)
[2019-02-28] MEDS: PANTOPRAZOLE 40 MG TABLET. PO SCH (09:18)
[2019-02-28] MEDS: CHOLECALCIFEROL (VITAMIN D3) 1,000 UNIT TABLET PO SCH (09:18)
[2019-02-28 09:19] VITALS: BP 136/83
[2019-02-28] MEDS: FENOFIBRATE NANOCRYSTALLIZED 145 MG TABLET PO SCH (09:19)
[2019-02-28] MEDS: amLODIPine BESYLATE 10 MG TABLET PO SCH (09:19)
[2019-02-28] MEDS: EZETIMIBE 10 MG TABLET PO SCH (09:19)
--- NOTE | 2019-02-28 10:12 | DS ---
DATE OF DISCHARGE: HOSPITAL COURSE: The patient admitted with problems of chest pain, tightness in his chest, usually after he ate. He had been having [employer] burgers and drinking some wine or something and then apparently driven back from [place]. In any case, he had these problems and as a result of this, he was seen here in the Emergency Room and admitted for rule out NC protocol and continued to have abdominal pain. His labs are basically unremarkable except for an elevated lipase of 437. His cholesterol was amazing for the low HDL of 29, although the LDL was 49. His D-dimer was elevated. He had no chest pain, shortness of breath. He was completely ambulatory. The patient made good progress during the rest of his hospitalization. He had several studies done. The abdominal ultrasound showed downstream common bile duct dilatation and hepatic steatosis, for which an MRCP will be ordered as an outpatient. The patient's CT angiogram of the chest, abdomen, and so forth showed no pulmonary emboli and otherwise was unremarkable. In any case, the patient made good progress during the rest of his hospitalization and will be discharged home, followed up as an outpatient; however, he will have the MRCP and he will be on a low fat diet. Return to clinic after he has his MRCP and make further evaluation. IMPRESSION: Chest pain, unknown etiology, dilated common bile duct, acute pancreatitis of unknown etiology. PLAN: As above. He will be on a low fat diet, decreased activity, no smoking or drinking. LJ ARTIS MD DR: JOHNIE/cinthia JOB#: [id number] / [id number]
== END 2019-02-28 10:15 | disposition home or self-care (01) | DRG 438 ==
LOC: ER 21:57 → 1 SOUTH 02-27 01:30
PROVIDERS: ADMIT Family Medicine; ATTEND Family Medicine
DX: K85.90 Acute pancreatitis without necrosis or infection, unspecified (principal); N17.0 Acute kidney failure with tubular necrosis; J44.1 Chronic obstructive pulmonary disease with (acute) exacerbation; K83.8 Other specified diseases of biliary tract; R07.89 Other chest pain; N18.3 Chronic kidney disease, stage 3 (moderate); I12.9 Hypertensive chronic kidney disease with stage 1 through stage 4 chronic kidney disease, or unspecified chronic kidney disease; E87.6 Hypokalemia; E66.9 Obesity, unspecified; M19.90 Unspecified osteoarthritis, unspecified site; E78.00 Pure hypercholesterolemia, unspecified; E78.5 Hyperlipidemia, unspecified; G47.33 Obstructive sleep apnea (adult) (pediatric); K44.9 Diaphragmatic hernia without obstruction or gangrene; K76.0 Fatty (change of) liver, not elsewhere classified; Z82.49 Family history of ischemic heart disease and other diseases of the circulatory system; Z91.19 Patient's noncompliance with other medical treatment and regimen; Z87.442 Personal history of urinary calculi
CPT/HCPCS: 36415; 71046; 71275; 74177; 76700; 80048; 80061; 80076; 81001; 82550; 83690; 83735; 84443; 84484; 85025; 85379; 85610; 85730; 93005; 93306; 94640; 96361; 96372; 96374; 96375; G0238; J1650; J2405; J3490; J7120; J7620; Q9966; Q9967; 99285-25; J7030

== ENCOUNTER → 2020-02-02 | Outpatient (CLI) | payer MEDICARE, OTHER ==
[~2020-02-02] MED LIST changes: +AMLO10TA4 PO; +ASPI81TA59 PO; +BISO10TA PO; +CHOL10003 PO; +ESOM20CA PO; +EZET10TA20 PO; +FENO135C PO; -IV RINGERS SOLUTION,LACTATED 1,000 ML IV ONE; -PROPOFOL 20 ML IV ONE
--- NOTE | 2020-02-02 16:07 | RAD ---
EXAM: CT abdomen without contrast. HISTORY: Elevated liver enzymes, pancreatitis. TECHNIQUE: CT of the abdomen was performed without intravenous contrast. One or more of the following individualized dose reduction techniques were utilized for this examination: 1. Automated exposure control. 2. Adjustment of the mA and/or kV according to patient size. 3. Use of iterative reconstruction technique. COMPARISON: 02/27/2019. FINDINGS: Images of the lung bases reveal a small hiatal hernia. The lung bases appear clear. Bone windows reveal no suspicious lesions. A gallstone is noted. The gallbladder is not distended. There are calcified granulomas in the liver and spleen. A cyst in the right hepatic lobe inferiorly measures 1.8 cm. A dense nodule at the right renal lower pole measures 1 cm, consistent with a benign proteinaceous cyst. The left kidney and adrenal glands are unremarkable. There is mild left colonic diverticulosis. The visualized portions of the appendix are unremarkable. There is no small bowel obstruction. There are no pathologically enlarged lymph nodes. The pancreas is unremarkable without contrast. No focal lesions are identified. The pancreatic duct is not dilated. There is no surrounding inflammatory change. IMPRESSION: 1. No peripancreatic inflammation is identified. No pancreatic lesions are identified without contrast. 2. Cholelithiasis. 3. Small hiatal hernia. Electronically signed by: Diana Silva MD (02/02/2020 4:04 PM) [id number]
== END ==
LOC: CT 10:18
PROVIDERS: ATTEND Family Medicine
DX: K80.20 Calculus of gallbladder without cholecystitis without obstruction (principal); K44.9 Diaphragmatic hernia without obstruction or gangrene; K57.30 Diverticulosis of large intestine without perforation or abscess without bleeding
CPT/HCPCS: 74150

== ENCOUNTER → 2020-02-14 | Outpatient (CLI) | payer MEDICARE, OTHER ==
[~2020-02-14] VITALS: Ht 180.3 cm; Wt 81.6 kg
[~2020-02-14] MED LIST changes: +SINCALIDE 1.6 MCG in IV NORMAL SALINE 50ML 30 ML IV ONE
--- NOTE | 2020-02-14 12:40 | RAD ---
NM HEPATOBILIARY SCAN W PHARM History: Pancreatitis Comparison: CT exam February 02, 2020 and abdomen ultrasound February 27, 2019 Findings: Hepatobiliary examination was performed, patient injected with 5.5 mCi technetium 99m Choletec. 1.6 mcg of sincalide were injected, gallbladder ejection fraction calculated. There is appropriate radiotracer activity of the liver, common bile duct, and small bowel. There is appropriate visualization of the gallbladder, initially seen at about 10 to 15 minutes. Gallbladder ejection fraction is within normal limits about 61%. Impression: 1. There is normal visualization of the gallbladder and a normal gallbladder ejection fraction. Electronically signed by: Hari Troncoso MD (02/14/2020 12:37 PM) [id number]
== END | disposition home or self-care (01) ==
LOC: NM 07:51
PROVIDERS: ATTEND Family Medicine
DX: N18.2 Chronic kidney disease, stage 2 (mild) (principal)
CPT/HCPCS: 78227; A9537; J2805

== ENCOUNTER 2020-05-16 07:43 | Emergency (ER) | payer MEDICARE, OTHER ==
[~2020-05-16] VITALS: Ht 180.3 cm; Wt 86.0 kg
[~2020-05-16 07:43] MED LIST changes: -SINCALIDE 1.6 MCG in IV NORMAL SALINE 50ML 30 ML IV ONE
--- NOTE | 2020-05-16 08:02 | PHYS DOC ---
Past History Past Medical History: Arthritis, COPD, GERD, High Cholesterol, Hypertension, Renal Disease Additional Past Medical Histor: chronic back pain Past Surgical History: Other Additional Past Surgical Histo: Zygoma fx, ORIF wrist, finger, testicle torsion Smoking: Quit Greater Than 1 Year Alcohol Use: Occasionally Drug Use: Marijuana General Adult EDM: Chief Complaint: BACK PAIN - NO INJURY HPI: HPI: Patient is a 75 with a history of back pain, GERD, and hypertension, who presents to the ED per EMS with an exacerbation of his lower back pain since last night. Pain is exacerbated by movement and he took his prescribed tramadol and flexeril without any relief. Patient reports that he has had similar episodes where he came in and they gave him a shot with relieved his pain. Severity rated at a 10/10 on palpation. Denies any trauma, saddle anesthesia, bladder or bowel incontinence, chest pain, SOB, or abdominal pain. Review of Systems: Review of Systems: Constitutional: Denies fever or chills Eyes: Denies redness or eye pain HENT: Denies nasal congestion or sore throat Respiratory: Denies cough or shortness of breath Cardiovascular: Denies chest pain or palpitations GI: Denies abdominal pain, nausea, or vomiting : Denies dysuria or hematuria Musculoskeletal: Reports back pain; Denies joint pain Integument: Denies rash or skin lesions Neurologic: Denies headache, focal weakness or sensory changes; denies loss of bowel/bladder Complete systems were reviewed and found to be within normal limits, except as documented in this note. Allergies: Allergies: Allergies Coded Allergies Type Severity Reaction Last Updated Verified Sulfa (Sulfonamide Antibiotics) Allergy Severe Swelling 05/16/20 Yes morphine Allergy Severe Hives 05/16/20 Yes Physical Exam: PE: Constitutional: Well developed, well nourished, no acute distress, non-toxic appearance HENT: Normocephalic, atraumatic Eyes: PERRL, EOMI, conjunctiva normal, no discharge Neck: Normal range of motion, no tenderness, supple Lungs & Thorax: No respiratory distress, equal chest rise and fall Abdomen: Soft, no tenderness Skin: Warm, dry, no erythema, no rash Back: Tenderness to palpation on lumbar region, ROM limited due to pain, no CVA tenderness Extremities: No tenderness, ROM intact, no edema Neurologic: Alert and oriented X 3, normal motor function, normal sensory function, no focal deficits noted Psychologic: Affect normal, judgment normal Current Patient Data: Vital Signs: Vital Signs Date Time Temp Pulse Resp B/P (MAP) Pulse Ox O2 Delivery O2 Flow Rate FiO2 05/16/20 07:46 97.7 77 16 149/89 (109) 98 EKG: EKG: [] Radiology/Procedures: Radiology/Procedures: [] Course & Med Decision Making: Course & Med Decision Making Patient is a 75 y/o male with a history of chronic back pain, who presents to the ED with exacerbation of his back pain. He states he has had similar episodes in the past which has improved with a shot. IM pain medication and muscle relaxer given in ED, pain improved. Patient stable for discharge with outpatient follow-up with PCP. Discussed findings and plan with patient, who acknowledges understanding and agreement. Sj Disclaimer: Sj Disclaimer: This electronic medical record was generated, in whole or in part, using a voice recognition dictation system. Departure Departure: Impression: Primary Impression: Acute exacerbation of chronic low back pain Disposition: 01 [facility] HOME SELF CARE/HOMELESS Condition: STABLE Referrals: LJ ARTIS MD (PCP) Patient Instructions: Chronic Back Pain Additional Instructions: Please take your previously prescribed pain medications as needed. A prescription for a new muscle relaxer is provided. Please use instead of your Flexeril muscle relaxer. Scripts Lidocaine (Lidocaine PATCH ) 1 Each Adh..patch 1 EACH TP DAILY for FOR LOCAL PAIN, #10 PATCH REMOVE AFTER 12 HOURS Prov: BETY SUBRAMANIAN DO 05/16/20 Orphenadrine Citrate (ORPHENADRINE CITRATE) 100 Mg Tablet.er 1 TAB PO BID PRN for MUSCLE PAIN, #14 TAB 0 Refills Prov: BETY SUBRAMANIAN DO 05/16/20 BETY SUBRAMANIAN DO May 16, 2020 08:01
[2020-05-16] MEDS ORDERED: LIDO700A21 TP (08:13)
[2020-05-16] MEDS ORDERED: ORPH-16 PO (08:13)
[2020-05-16] MEDS ORDERED: KETOROLAC 15 MG/ML VIAL. IM ONE (08:15)
[2020-05-16] MEDS ORDERED: ORPHENADRINE CITRATE 60 MG/2 ML VIAL. IM ONE (08:15)
[2020-05-16 08:24] VITALS: BP 146/82
== END 2020-05-16 08:30 | disposition home or self-care (01) ==
LOC: ER 07:43
DX: G89.29 Other chronic pain (principal); M54.5 Low back pain; M19.90 Unspecified osteoarthritis, unspecified site; J44.9 Chronic obstructive pulmonary disease, unspecified; K21.9 Gastro-esophageal reflux disease without esophagitis; E78.00 Pure hypercholesterolemia, unspecified; I10 Essential (primary) hypertension; F12.90 Cannabis use, unspecified, uncomplicated; Z98.890 Other specified postprocedural states; Z88.2 Allergy status to sulfonamides; Z88.6 Allergy status to analgesic agent
CPT/HCPCS: 96372; 99284; J1885; J2360

== ENCOUNTER → 2021-12-05 | Outpatient (CLI) | payer MEDICARE, OTHER ==
[~2021-12-05] MED LIST changes: -BISO10TA PO; +BISO10TA8 PO; +LIDO700A21 TP; +ORPH-16 PO
[2021-12-05 13:45] LABS: BASO % 0 % (0-3); EOS % 0 % (0-3); HEMATOCRIT 41.7 % (39.0-53.0); LYMPH # 1.6 x10^3/uL (1.0-4.8); LYMPH % 20 % (24-48); MEAN CORPUSCULAR HEMOGLOBIN 30 pg (25-35); MEAN CORPUSCULAR HGB CONC 34 g/dL (31-37); MEAN CORPUSCULAR VOLUME 90 fL (79-100); MONO # 0.7 x10^3/uL (0.0-1.1); MONO % 9 % (0-9); NEUT # 5.5 x10^3uL (1.8-7.7); NEUT % 70 % (31-73); PLATELET COUNT 251 x10^3/uL (140-400); RED BLOOD COUNT 4.65 x10^6/uL (4.30-5.70); RED CELL DISTRIBUTION WIDTH 14.6 % (11.5-14.5); WHITE BLOOD COUNT 7.8 x10^3/uL (4.0-11.0)
[2021-12-05 13:53] LABS: ALBUMIN/GLOBULIN RATIO 1.1 (1.0-1.7); CALCIUM 9.4 mg/dL (8.5-10.1); CREATININE 1.3 mg/dL (0.7-1.3); POTASSIUM 3.7 mmol/L (3.5-5.1); TOTAL BILIRUBIN 0.4 mg/dL (0.2-1.0); TOTAL PROTEIN 7.6 g/dL (6.4-8.2)
--- NOTE | 2021-12-05 14:40 | RAD ---
CT scan abdomen and pelvis without contrast 12/05/2021 CLINICAL HISTORY: Abdominal pain. Bloating. Constipation. TECHNIQUE: Unenhanced, contiguous, 3 mm axial sections were obtained through the abdomen and pelvis. One or more of the following individualized dose reduction techniques were utilized for this study: 1. Automated exposure control. 2. Adjustment of the mA and/or kV according to patient size. 3. Use of iterative reconstruction technique. FINDINGS: Comparison study is dated 02/02/2020. Images through the lung bases demonstrate minimal dependent subsegmental atelectasis bilaterally. The re is a small sliding hiatal hernia. Calcified granulomas are seen scattered throughout the liver and spleen. A 1.6 cm rounded low-attenua tion lesion is involving the lower pole of the right kidney. This likely represents a cyst. The pancr eas and adrenal glands are within normal limits. A 1 mm nonobstructing calculus is seen involving the lower pole left kidney. A 9 mm rounded area of increased attenuation is seen involving the anterior aspect of the lower pole the right kidney. This likely represents a hyperdense cyst. It is unchanged. No further imaging evaluation is recommended. Atherosclerotic calcification abdominal aorta is seen. The abdominal aorta tapers normally. Calcified gallstones are seen within the gallbladder. No free fluid or free air is within the abdomen. There i s no evidence of bowel obstruction. Air and stool are seen throughout the colon. The appendix is well -visualized and is within normal limits. Images through the pelvis demonstrate the urinary bladder distended with urine. The prostate gland is enlarged likely related to BPH. Calcifications are seen within the pelvis consistent with phlebolith s. Scattered diverticula are seen involving the sigmoid colon. No inflammatory changes are seen adjac ent fat. No free fluid is noted. Very mild S-shaped curvature of the thoracolumbar spine is seen. Degenerative changes are seen involv ing the lower thoracic and throughout the lumbar spine along with both hips. IMPRESSION: No acute abnormality is seen. Electronically signed by: Yoni Vallejo MD (12/05/2021 2:38 PM) [id number]
[2021-12-06 02:08] LABS: HEMOGLOBIN A1C 5.6 % (4.8-5.6)
[2021-12-06 11:57] LABS: CHOLESTEROL/HDL RATIO 2.9
== END ==
LOC: CT 11:49
PROVIDERS: ATTEND Family Medicine
DX: R10.84 Generalized abdominal pain (principal); M47.815 Spondylosis without myelopathy or radiculopathy, thoracolumbar region; I70.0 Atherosclerosis of aorta; K80.80 Other cholelithiasis without obstruction; I10 Essential (primary) hypertension; E20.9 Hypoparathyroidism, unspecified; E11.22 Type 2 diabetes mellitus with diabetic chronic kidney disease; N18.6 End stage renal disease
CPT/HCPCS: 36415; 74176; 80053; 80061; 83036; 83690; 85025